=== PATIENT | male | born 1985 | race African-American/Black ===

== ENCOUNTER 2022-05-09 12:54 | Inpatient (IN) | payer OTHER ==
[2022-05-09 13:43] VITALS: BMI 21.5
[2022-05-09] MEDS ORDERED: MAGNESIUM HYDROX 2400MG/30ML ORAL SUSPENSION 30 ML CUP PO PRN (14:39)
[2022-05-09] MEDS ORDERED: BISMUTH SUBSALICYLATE 524 MG/30 ML PO PRN (14:39)
[2022-05-09] MEDS ORDERED: POLYETHYLENE GLYCOL (HEALTHYLAX) 3350 17 GM PACKET PO PRN (14:39)
[2022-05-09] MEDS ORDERED: NICOTINE 10 MG CARTRIDGE (INHALER) IH PRN (14:39)
[2022-05-09] MEDS ORDERED: LOPERAMIDE HCL 2 MG CAPSULE PO PRN (14:39)
[2022-05-09] MEDS ORDERED: NALOXONE HCL (KLOXXADO) 8 MG SPRAY NS PRN (14:39)
[2022-05-09] MEDS ORDERED: IBUPROFEN 400 MG TABLET (FP) PO PRN (14:39)
[2022-05-09] MEDS ORDERED: DICYCLOMINE HCL 10 MG CAPSULE PO PRN (14:39)
[2022-05-09] MEDS ORDERED: ACETAMINOPHEN 325 MG TABLET (FP) PO PRN ×2 (14:39)
[2022-05-09] MEDS ORDERED: IBUPROFEN 600 MG TABLET (FP) PO PRN (14:39)
[2022-05-09] MEDS ORDERED: ONDANSETRON *ODT* 4 MG TABLET SL PRN (14:39)
[2022-05-09] MEDS ORDERED: BENZOCAINE/MENTHOL (CHLORASEPTIC ) LOZENGE MM PRN (14:39)
[2022-05-09] MEDS: MELATONIN 5 MG TABLETS PO SCH (22:52)
[2022-05-09] MEDS: THIAMINE HCL 100 MG TABLET (FP) PO SCH (22:52)
[2022-05-10 09:46] LABS: HEMATOCRIT 36.9 % (35.4-49); HEMOGLOBIN 12.2 GM/dL (11.7-16.9); MCH 30.9 pg (25.7-33.7); MEAN CELL VOLUME 93.7 fl (80-96); MEAN PLT VOLUME 7.9 fl (7.5-11.1); PLATELET COUNT 593 10^3/uL (134-434); RBC 3.94 M/mm3 (4.00-5.60); RDW 13.6 % (11.9-15.9); WHITE BLOOD COUNT 16.7 K/mm3 (4.0-10.0)
[2022-05-10 09:56] LABS: ALBUMIN 2.3 g/dl (3.4-5.0)
[2022-05-10 09:57] LABS: BLOOD UREA NITROGEN 10.2 mg/dL (7-18); CALCIUM 9.3 mg/dL (8.5-10.1)
[2022-05-10 09:58] LABS: CREATININE 1.1 mg/dL (0.55-1.3)
[2022-05-10 10:00] LABS: BILIRUBIN,TOTAL 0.5 mg/dL (0.2-1); TOT PROT 6.9 g/dl (6.4-8.2)
[2022-05-10] MEDS: METHOCARBAMOL 500 MG TABLET PO PRN ×2 (10:48→22:52)
[2022-05-10] MEDS: PRENATAL VITAMINS W/ FOLIC ACID TABLET (FP) PO SCH (10:48)
[2022-05-10] MEDS: hydrOXYzine PAMOATE 25 MG CAPSULE (FP) PO PRN ×2 (10:48→22:52)
[2022-05-10] MEDS: THIAMINE HCL 100 MG TABLET (FP) PO SCH (22:52)
[2022-05-10] MEDS: MELATONIN 5 MG TABLETS PO SCH (22:53)
[2022-05-11] MEDS: MAG HYDROX/AL HYDROX/SIMETH 30 ML UNIT-DOSE CUP PO PRN ×2 (03:09→10:13)
[2022-05-11] MEDS: hydrOXYzine PAMOATE 25 MG CAPSULE (FP) PO PRN (05:21)
[2022-05-11] MEDS: METHOCARBAMOL 500 MG TABLET PO PRN ×2 (05:21→10:21)
[2022-05-11] MEDS: PRENATAL VITAMINS W/ FOLIC ACID TABLET (FP) PO SCH (10:11)
[2022-05-11 13:04] VITALS: BP 133/89; PULSE 86; RESP 17; TEMP 97.1
== END 2022-05-11 15:30 | disposition home or self-care (01) | DRG 897 ==
LOC: YASAS 12:54 → Y6N 16:17
PROVIDERS: ADMIT Allergy & Immunology; ATTEND Surgery
PROC: HZ2ZZZZ Detoxification Services for Substance Abuse Treatment (ICD-10-PCS; principal; 2022-05-09)
DX: F10.230 Alcohol dependence with withdrawal, uncomplicated (principal); F14.20 Cocaine dependence, uncomplicated; F16.20 Hallucinogen dependence, uncomplicated; F11.23 Opioid dependence with withdrawal; F17.210 Nicotine dependence, cigarettes, uncomplicated; I10 Essential (primary) hypertension
CPT/HCPCS: 36415; 80053; 85027; 86780; 93005; 93010; C9803-CS; U0003; U0005

== ENCOUNTER 2022-10-22 15:25 | Inpatient (IN) | payer OTHER ==
[2022-10-22 15:54] VITALS: BMI 20.6
[2022-10-22] MEDS ORDERED: ACETAMINOPHEN 325 MG TABLET (FP) PO PRN (19:04)
[2022-10-22] MEDS ORDERED: P-EPHED 60MG/TRIPROLIDI 2.5MG TABLET PO PRN (19:04)
[2022-10-22] MEDS ORDERED: BISMUTH SUBSALICYLATE 524 MG/30 ML PO PRN (19:04)
[2022-10-22] MEDS ORDERED: MAG HYDROX/AL HYDROX/SIMETH 30 ML UNIT-DOSE CUP PO PRN (19:04)
[2022-10-22] MEDS ORDERED: IBUPROFEN 600 MG TABLET (FP) PO PRN (19:04)
[2022-10-22] MEDS ORDERED: guaiFENesin 600 MG TABLET.ER (FP) PO PRN (19:04)
[2022-10-22] MEDS ORDERED: IBUPROFEN 400 MG TABLET (FP) PO PRN (19:04)
[2022-10-22] MEDS ORDERED: POLYETHYLENE GLYCOL (HEALTHYLAX) 3350 17 GM PACKET PO PRN (19:04)
[2022-10-22] MEDS ORDERED: ONDANSETRON *ODT* 4 MG TABLET SL PRN (19:04)
[2022-10-22] MEDS ORDERED: NALOXONE HCL (KLOXXADO) 8 MG SPRAY NS PRN (19:04)
[2022-10-22] MEDS ORDERED: METHOCARBAMOL 500 MG TABLET PO PRN (19:04)
[2022-10-22] MEDS ORDERED: NICOTINE POLACRILEX 2 MG GUM BUC PRN (19:04)
[2022-10-22] MEDS ORDERED: NALOXONE HCL 0.4 MG/ML VIAL IM PRN (19:04)
[2022-10-22] MEDS ORDERED: MAGNESIUM HYDROX 2400MG/30ML ORAL SUSPENSION 30 ML CUP PO PRN (19:04)
[2022-10-22] MEDS ORDERED: BENZOCAINE/MENTHOL (CHLORASEPTIC ) LOZENGE MM PRN (19:04)
[2022-10-22] MEDS ORDERED: LOPERAMIDE HCL 2 MG CAPSULE PO PRN (19:04)
[2022-10-22] MEDS ORDERED: BENZONATATE 200 MG CAPSULE PO PRN (19:04)
[2022-10-22] MEDS ORDERED: DICYCLOMINE HCL 10 MG CAPSULE PO PRN (19:04)
[2022-10-22] MEDS: MELATONIN 5 MG TABLETS PO SCH (21:53)
[2022-10-22] MEDS: THIAMINE HCL 100 MG TABLET (FP) PO SCH (21:54)
[2022-10-23] MEDS: PRENATAL VITAMINS W/ FOLIC ACID TABLET (FP) PO SCH (10:47)
[2022-10-23] MEDS: hydrOXYzine PAMOATE 25 MG CAPSULE (FP) PO PRN (22:30)
[2022-10-23] MEDS: MELATONIN 5 MG TABLETS PO SCH (22:30)
[2022-10-23] MEDS: THIAMINE HCL 100 MG TABLET (FP) PO SCH (22:30)
[2022-10-24] MEDS: PRENATAL VITAMINS W/ FOLIC ACID TABLET (FP) PO SCH (10:51)
[2022-10-24] MEDS: MELATONIN 5 MG TABLETS PO SCH (22:10)
[2022-10-24] MEDS: hydrOXYzine PAMOATE 25 MG CAPSULE (FP) PO PRN (22:10)
[2022-10-24] MEDS: THIAMINE HCL 100 MG TABLET (FP) PO SCH (22:10)
[2022-10-25] MEDS: PRENATAL VITAMINS W/ FOLIC ACID TABLET (FP) PO SCH (10:40)
[2022-10-25 17:58] VITALS: BP 113/59; PULSE 69; RESP 20; TEMP 98.9
== END 2022-10-25 18:30 | disposition other institution (70) | DRG 897 ==
LOC: YASAS 15:25 → Y3N 20:22 → UNDOADMIN 20:22
PROVIDERS: ADMIT Allergy & Immunology; ATTEND Surgery
PROC: HZ2ZZZZ Detoxification Services for Substance Abuse Treatment (ICD-10-PCS; principal; 2022-10-22)
DX: F14.10 Cocaine abuse, uncomplicated (principal); F11.10 Opioid abuse, uncomplicated; F17.210 Nicotine dependence, cigarettes, uncomplicated; F19.24 Other psychoactive substance dependence with psychoactive substance-induced mood disorder; J45.909 Unspecified asthma, uncomplicated; Z88.0 Allergy status to penicillin; Z56.0 Unemployment, unspecified; Z59.00 Homelessness unspecified
CPT/HCPCS: C9803-CS; U0003; U0005

== ENCOUNTER 2022-10-25 18:36 | Inpatient (IN) | payer OTHER ==
[2022-10-25] MEDS ORDERED: NALOXONE HCL 0.4 MG/ML VIAL IVPUSH PRN (18:41)
[2022-10-25] MEDS ORDERED: NALOXONE HCL (KLOXXADO) 8 MG SPRAY NS PRN (18:41)
[2022-10-25] MEDS ORDERED: POLYETHYLENE GLYCOL (HEALTHYLAX) 3350 17 GM PACKET PO PRN (18:41)
[2022-10-25] MEDS ORDERED: LOPERAMIDE HCL 2 MG CAPSULE PO PRN (18:41)
[2022-10-25] MEDS ORDERED: ACETAMINOPHEN 325 MG TABLET (FP) PO PRN (18:41)
[2022-10-25] MEDS ORDERED: BENZOCAINE/MENTHOL (CHLORASEPTIC ) LOZENGE MM PRN (18:41)
[2022-10-25] MEDS ORDERED: IBUPROFEN 600 MG TABLET (FP) PO PRN (18:41)
[2022-10-25] MEDS ORDERED: AMMONIUM LACTATE 12% LOTION 225 GM BOTTLE TP PRN (18:41)
[2022-10-25] MEDS ORDERED: MAGNESIUM HYDROX 2400MG/30ML ORAL SUSPENSION 30 ML CUP PO PRN (18:41)
[2022-10-25] MEDS ORDERED: IBUPROFEN 400 MG TABLET (FP) PO PRN (18:41)
[2022-10-25] MEDS ORDERED: MAG HYDROX/AL HYDROX/SIMETH 30 ML UNIT-DOSE CUP PO PRN (18:41)
[2022-10-25] MEDS ORDERED: BENZONATATE 200 MG CAPSULE PO PRN (18:41)
[2022-10-25] MEDS ORDERED: NICOTINE POLACRILEX 2 MG GUM BUC PRN (18:41)
[2022-10-25] MEDS ORDERED: guaiFENesin 600 MG TABLET.ER (FP) PO PRN (18:41)
[2022-10-25] MEDS ORDERED: METHOCARBAMOL 500 MG TABLET PO PRN (18:41)
[2022-10-25] MEDS ORDERED: COLLOIDAL OATMEAL 1 BAR EACH TP PRN (18:41)
[2022-10-25] MEDS: MELATONIN 5 MG TABLETS PO SCH (21:30)
[2022-10-25] MEDS: THIAMINE HCL 100 MG TABLET (FP) PO SCH (21:30)
[2022-10-26] MEDS: PRENATAL VITAMINS W/ FOLIC ACID TABLET (FP) PO SCH (10:41)
[2022-10-26] MEDS ORDERED: ALBUTEROL SO4 HFA INHALER IH PRN (16:25)
[2022-10-26] MEDS: MELATONIN 5 MG TABLETS PO SCH (21:16)
[2022-10-26] MEDS: THIAMINE HCL 100 MG TABLET (FP) PO SCH (21:16)
[2022-10-27] MEDS: PRENATAL VITAMINS W/ FOLIC ACID TABLET (FP) PO SCH (09:44)
[2022-10-27 13:04] LABS: HIV INTERPRETATION NEGATIVE (NEGATIVE)
[2022-10-27] MEDS: THIAMINE HCL 100 MG TABLET (FP) PO SCH (21:22)
[2022-10-27] MEDS: MELATONIN 5 MG TABLETS PO SCH (21:22)
[2022-10-28] MEDS: PRENATAL VITAMINS W/ FOLIC ACID TABLET (FP) PO SCH (09:37)
[2022-10-28] MEDS: THIAMINE HCL 100 MG TABLET (FP) PO SCH (21:15)
[2022-10-28] MEDS: MELATONIN 5 MG TABLETS PO SCH (21:15)
[2022-10-28] MEDS ORDERED: INSULIN (NOVOLOG) ASPART 100 UNITS/ML 10ML VIAL ONE (21:26)
[2022-10-29] MEDS: PRENATAL VITAMINS W/ FOLIC ACID TABLET (FP) PO SCH (10:30)
[2022-10-29] MEDS: THIAMINE HCL 100 MG TABLET (FP) PO SCH (21:05)
[2022-10-29] MEDS: MELATONIN 5 MG TABLETS PO SCH (21:05)
[2022-10-30] MEDS: PRENATAL VITAMINS W/ FOLIC ACID TABLET (FP) PO SCH (09:31)
[2022-10-30] MEDS: THIAMINE HCL 100 MG TABLET (FP) PO SCH (21:14)
[2022-10-30] MEDS: MELATONIN 5 MG TABLETS PO SCH (21:14)
[2022-10-31] MEDS: PRENATAL VITAMINS W/ FOLIC ACID TABLET (FP) PO SCH (09:11)
[2022-10-31] MEDS: THIAMINE HCL 100 MG TABLET (FP) PO SCH (21:31)
[2022-10-31] MEDS: MELATONIN 5 MG TABLETS PO SCH (21:31)
[2022-11-01 06:46] VITALS: RESP 16
[2022-11-01] MEDS: PRENATAL VITAMINS W/ FOLIC ACID TABLET (FP) PO SCH (09:23)
[2022-11-01] MEDS: MELATONIN 5 MG TABLETS PO SCH (21:09)
[2022-11-01] MEDS: THIAMINE HCL 100 MG TABLET (FP) PO SCH (21:09)
[2022-11-02 07:13] VITALS: BP 106/78; PULSE 69; TEMP 97.6
[2022-11-02] MEDS: PRENATAL VITAMINS W/ FOLIC ACID TABLET (FP) PO SCH ×2 (10:16→10:19)
[2022-11-02] MEDS: THIAMINE HCL 100 MG TABLET (FP) PO SCH (21:10)
[2022-11-02] MEDS: MELATONIN 5 MG TABLETS PO SCH (21:10)
[2022-11-03] MEDS: PRENATAL VITAMINS W/ FOLIC ACID TABLET (FP) PO SCH (09:41)
[2022-11-03] MEDS: THIAMINE HCL 100 MG TABLET (FP) PO SCH (22:59)
[2022-11-03] MEDS: MELATONIN 5 MG TABLETS PO SCH (23:06)
[2022-11-04] MEDS: PRENATAL VITAMINS W/ FOLIC ACID TABLET (FP) PO SCH (09:28)
== END 2022-11-04 09:41 | disposition home or self-care (01) | DRG 895 ==
LOC: YASAS 18:36 → Y3E 18:38
PROVIDERS: ADMIT Allergy & Immunology; ATTEND Psychiatry & Neurology Pain Medicine
PROC: HZ42ZZZ Group Counseling for Substance Abuse Treatment, Cognitive-Behavioral (ICD-10-PCS; principal; 2022-10-25)
DX: F14.10 Cocaine abuse, uncomplicated (principal); F17.210 Nicotine dependence, cigarettes, uncomplicated; F19.24 Other psychoactive substance dependence with psychoactive substance-induced mood disorder; I10 Essential (primary) hypertension
CPT/HCPCS: 36415; 86803; 87389

== ENCOUNTER 2023-02-08 12:59 | Inpatient (IN) | payer OTHER ==
[2023-02-08 13:27] VITALS: BMI 20.7
[2023-02-08] MEDS ORDERED: NICOTINE POLACRILEX 2 MG GUM BUC PRN (17:04)
[2023-02-08] MEDS ORDERED: MAGNESIUM HYDROX 2400MG/30ML ORAL SUSPENSION 30 ML CUP PO PRN (17:04)
[2023-02-08] MEDS ORDERED: IBUPROFEN 600 MG TABLET (FP) PO PRN (17:04)
[2023-02-08] MEDS ORDERED: hydrOXYzine PAMOATE 25 MG CAPSULE (FP) PO PRN (17:04)
[2023-02-08] MEDS ORDERED: NALOXONE HCL (KLOXXADO) 8 MG SPRAY NS PRN (17:04)
[2023-02-08] MEDS ORDERED: MAG HYDROX/AL HYDROX/SIMETH 30 ML UNIT-DOSE CUP PO PRN (17:04)
[2023-02-08] MEDS ORDERED: ACETAMINOPHEN 325 MG TABLET (FP) PO PRN (17:04)
[2023-02-08] MEDS ORDERED: guaiFENesin 600 MG TABLET.ER (FP) PO PRN (17:04)
[2023-02-08] MEDS ORDERED: BISMUTH SUBSALICYLATE 524 MG/30 ML PO PRN (17:04)
[2023-02-08] MEDS ORDERED: DICYCLOMINE HCL 10 MG CAPSULE PO PRN (17:04)
[2023-02-08] MEDS ORDERED: IBUPROFEN 400 MG TABLET (FP) PO PRN (17:04)
[2023-02-08] MEDS ORDERED: POLYETHYLENE GLYCOL (HEALTHYLAX) 3350 17 GM PACKET PO PRN (17:04)
[2023-02-08] MEDS ORDERED: METHOCARBAMOL 500 MG TABLET PO PRN (17:04)
[2023-02-08] MEDS ORDERED: BENZONATATE 200 MG CAPSULE PO PRN (17:04)
[2023-02-08] MEDS ORDERED: LOPERAMIDE HCL 2 MG CAPSULE PO PRN (17:04)
[2023-02-08] MEDS ORDERED: BENZOCAINE/MENTHOL (CHLORASEPTIC ) LOZENGE MM PRN (17:04)
[2023-02-08] MEDS ORDERED: NALOXONE HCL 0.4 MG/ML VIAL IM PRN (17:04)
[2023-02-08] MEDS: THIAMINE HCL 100 MG TABLET (FP) PO SCH (22:15)
[2023-02-08] MEDS: MELATONIN 5 MG TABLETS PO SCH (22:15)
[2023-02-09] MEDS ORDERED: chlordiazePOXIDE HCL 25 MG CAPSULE PO PRN (09:54)
[2023-02-09] MEDS ORDERED: ALBUTEROL SO4 HFA INHALER IH PRN (09:59)
[2023-02-09] MEDS: chlordiazePOXIDE HCL 25 MG CAPSULE PO SCH ×3 (10:21→22:08)
[2023-02-09] MEDS: PRENATAL VITAMINS W/ FOLIC ACID TABLET (FP) PO SCH (10:21)
[2023-02-09] MEDS: ONDANSETRON *ODT* 4 MG TABLET SL PRN (10:24)
[2023-02-09 11:53] LABS: HEMATOCRIT 39.4 % (35.4-49); HEMOGLOBIN 13.3 GM/dL (11.7-16.9); MCH 31.3 pg (25.7-33.7); MCHC 33.9 g/dl (32.0-35.9); MEAN CELL VOLUME 92.6 fl (80-96); PLATELET COUNT 337 10^3/uL (134-434); RBC 4.26 M/mm3 (4.00-5.60); RDW 13.4 % (11.9-15.9); WHITE BLOOD COUNT 6.9 K/mm3 (4.0-10.0)
[2023-02-09 11:57] LABS: POTASSIUM 4.6 mmol/L (3.5-5.1)
[2023-02-09 12:03] LABS: BLOOD UREA NITROGEN 18.6 mg/dL (7-18); CALCIUM 8.9 mg/dL (8.5-10.1)
[2023-02-09 12:04] LABS: ALBUMIN 3.6 g/dl (3.4-5.0)
[2023-02-09 12:06] LABS: CREATININE 1.4 mg/dL (0.55-1.3)
[2023-02-09 12:08] LABS: BILIRUBIN,TOTAL 0.3 mg/dL (0.2-1); TOT PROT 6.6 g/dl (6.4-8.2)
[2023-02-09] MEDS: MELATONIN 5 MG TABLETS PO SCH (22:08)
[2023-02-09] MEDS: THIAMINE HCL 100 MG TABLET (FP) PO SCH (22:08)
[2023-02-10] MEDS: chlordiazePOXIDE HCL 25 MG CAPSULE PO SCH ×4 (05:44→22:12)
[2023-02-10] MEDS: PRENATAL VITAMINS W/ FOLIC ACID TABLET (FP) PO SCH (10:29)
[2023-02-10] MEDS: THIAMINE HCL 100 MG TABLET (FP) PO SCH (22:12)
[2023-02-10] MEDS: MELATONIN 5 MG TABLETS PO SCH (22:12)
[2023-02-11] MEDS: chlordiazePOXIDE HCL 25 MG CAPSULE PO SCH ×4 (05:56→22:09)
[2023-02-11] MEDS: PRENATAL VITAMINS W/ FOLIC ACID TABLET (FP) PO SCH (10:10)
[2023-02-11] MEDS: ONDANSETRON *ODT* 4 MG TABLET SL PRN (10:12)
[2023-02-11] MEDS: THIAMINE HCL 100 MG TABLET (FP) PO SCH (22:09)
[2023-02-11] MEDS: MELATONIN 5 MG TABLETS PO SCH (22:09)
[2023-02-12] MEDS ORDERED: chlordiazePOXIDE HCL 10 MG CAPSULE PO PRN
[2023-02-12] MEDS: chlordiazePOXIDE HCL 10 MG CAPSULE PO SCH ×4 (06:35→22:45)
[2023-02-12] MEDS: PRENATAL VITAMINS W/ FOLIC ACID TABLET (FP) PO SCH (10:07)
[2023-02-12 13:46] VITALS: TEMP 97.7
[2023-02-12] MEDS: MELATONIN 5 MG TABLETS PO SCH (22:44)
[2023-02-12] MEDS: THIAMINE HCL 100 MG TABLET (FP) PO SCH (22:44)
[2023-02-13] MEDS ORDERED: chlordiazePOXIDE HCL 10 MG CAPSULE PO SCH (05:00)
[2023-02-13 09:40] VITALS: BP 101/60; PULSE 69; RESP 16
[2023-02-14] MEDS ORDERED: chlordiazePOXIDE HCL 10 MG CAPSULE PO ONE (05:00)
== END 2023-02-13 09:38 | disposition home or self-care (01) | DRG 897 ==
LOC: YASAS 12:59 → Y3N 17:18
PROVIDERS: ADMIT Allergy & Immunology; ATTEND Surgery
PROC: HZ2ZZZZ Detoxification Services for Substance Abuse Treatment (ICD-10-PCS; principal; 2023-02-08)
DX: F10.230 Alcohol dependence with withdrawal, uncomplicated (principal); F14.20 Cocaine dependence, uncomplicated; F17.210 Nicotine dependence, cigarettes, uncomplicated; F19.24 Other psychoactive substance dependence with psychoactive substance-induced mood disorder; I10 Essential (primary) hypertension; J45.909 Unspecified asthma, uncomplicated
CPT/HCPCS: 36415; 80053; 85027; 86780; 87635; Q0162